=== PATIENT | female | born 1960 ===

== ENCOUNTER 2020-06-04 05:28 | Emergency (ER) | payer SELFPAY ==
--- NOTE | 2020-06-04 05:39 | Emergency Department Report ---
ED CPR HPI - General Stated Complaint: CARDIAC Time Seen by Provider: 06/04/20 05:35 - History of Present Illness Initial Comments: 59-year-old female, history of CVA, presents to ED in cardiac arrest. Patient's woke up and realized that patient was not breathing. EMS arrived and found patient pulseless and apneic patient was intubated, IO was placed. Initial rhythm of asystole. Patient has been given epi x2. Last ongoing for approximately 20 to 25 minutes upon ED arrival. reports patient has had flulike symptoms for the last couple of days. MD Complaint: found unresponsive Place: home Initial Findings in the Field: unresponsive, no pulse, other rhythm (Asystole) ROSC in the Field: No Treatments Prior to Arrival: intubation, chest compressions, epinephrine mgs # (x2) ED Review of Systems ROS: Stated complaint: CARDIAC Other details as noted in HPI Comment: Unobtainable due to pts medical conditions ED Physical Exam - Head Head exam: Present: atraumatic, normocephalic - Eye Pupils: Present: other (Fixed bilaterally) - ENT ENT exam: Present: other (ET tube in place) - Neck Neck exam: Present: normal inspection - Respiratory Respiratory exam: Present: other (No spontaneous breaths) - Cardiovascular Cardiovascular Exam: Present: other (No palpable pulse) - GI/Abdominal GI/Abdominal exam: Present: soft. Absent: distended - Extremities Exam Extremities exam: Present: normal inspection - Neurological Exam Neurological exam: Present: other (GCS 3) - Skin Skin exam: Present: warm, dry, intact, normal color ED Medical Decision Making - Medical Decision Making 59-year-old female arrives to the ED in cardiac arrest. Per , patient has had flulike symptoms over the last couple of days. Patient was not tested for Covid. Rhythm of asystole in the field and also in the ED. ACLS was continued according to protocol. Please see nurse's notes for details. Unfortunately ROSC not achieved. Time of was called at 5:31 AM. notified. - Differential Diagnosis CVA, arrhythmia, COVID-19 Critical care attestation.: If time is entered above; I have spent that time in minutes in the direct care of this critically ill patient, excluding procedure time. ED Disposition Clinical Impression: Cardiac arrest Disposition: DC-20 Is pt being admited?: No Condition: Stable Referrals: PRIMARY CARE, [Primary Care Provider] - 3-5 Days Time of Disposition: 05:49
== END 2020-06-04 13:00 ==
LOC: ED 05:28
DX: I46.9 Cardiac arrest, cause unspecified (principal)
CPT/HCPCS: 92950